=== PATIENT | female | born 1970 | race Caucasian/White ===

== ENCOUNTER 2019-07-07 18:50 | Emergency (ER) | payer BC ==
[~2019-07-07] VITALS: Ht 172.7 cm; Wt 81.8 kg
[2019-07-07 18:50] VITALS: BP 133/82
--- NOTE | 2019-07-07 18:54 | PHYS DOC ---
General Adult EDM: Chief Complaint: FOOT INJURY PAIN HPI: HPI: ".. 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 And I was in the produce section.. And slipped on the floor and when I attempted to catch myself I twisted my left foot and I heard a pop... And it has been hurting ever since.. Patient is a 49 year old female who presents with above hx and complaints of left mid foot injury. Patient localizes pain midfoot dorsal. Pain is increased with weightbearing, dorsal flexion and plantar. Distal neurovascular is equal to right foot. No upper leg tenderness. Patient denies any history of osteopenia. Patient denies any history of immunosuppression. Has travel outside the [place] area. No specific ill contacts. Patient was wearing sandals at the time of injury. Patient denies any history of osteopenia. Review of Systems: Review of Systems: Constitutional: Denies fever or chills Eyes: Denies change in visual acuity HENT: Denies nasal congestion or sore throat Respiratory: Denies cough or shortness of breath Cardiovascular: Denies chest pain or edema GI: Denies abdominal pain, nausea, vomiting, bloody stools or diarrhea : Denies dysuria Musculoskeletal: Complains of left foot pain. Integument: Denies rash Neurologic: Denies headache, focal weakness or sensory changes Endocrine: Denies polyuria or polydipsia Lymphatic: Denies swollen glands Psychiatric: Denies depression or anxiety Heart Score: HEART Score for Chest Pain: HEART Score for Chest Pain Response (Comments) Value Age >45 - < 65 1 Total 1 Risk Factors: Risk Factors: DM, Current or recent (<one month) smoker, HTN, HLP, family history of CAD, obesity. Risk Scores: Score 0 - 3: 2.5% MACE over next 6 weeks - Discharge Home Score 4 - 6: 20.3% MACE over next 6 weeks - Admit for Clinical Observation Score 7 - 10: 72.7% MACE over next 6 weeks - Early Invasive Strategies Family History: Family History: Noncontributory Current Medications: Current Meds: See nursing for home meds Allergies: Allergies: Allergic to honeybee venom Physical Exam: PE: Constitutional: Well developed, well nourished, moderate acute distress, non- toxic appearance. [] HENT: Normocephalic, atraumatic, bilateral external ears normal, oropharynx moist, no oral exudates, nose normal. [] Eyes: PERRLA, EOMI, conjunctiva normal, no discharge. [] Neck: Normal range of motion, no tenderness, supple, no stridor. [] Cardiovascular:Heart rate regular rhythm, no murmur [] Lungs & Thorax: Bilateral breath sounds clear to auscultation [] Abdomen: Bowel sounds normal, soft, no tenderness, no masses, no pulsatile masses. [] Skin: Warm, dry, no erythema, no rash. [] Back: No tenderness, no CVA tenderness. [] Extremities: No tenderness, no cyanosis, no clubbing, ROM intact, no edema. [] Except findings in left foot as per HPI. Neurologic: Alert and oriented X 3, normal motor function, normal sensory function, no focal deficits noted. [] Psychologic: Affect anxious, judgement normal, mood normal. [] EKG: EKG: [] Radiology/Procedures: Radiology/Procedures: [][place] [address] IMAGING REPORT Signed PATIENT: HENRRY WEISS EACCOUNT: [id number] : 1970 LOCATION: ER AGE: 49 SEX: F EXAM STATUS: REG ER ORD. PHYSICIAN: FRANKLIN VIZCARRA MD REASON: Left foot injury, pain PROCEDURE: FOOT LEFT 3V FOOT LEFT 3V 07/07/2019 7:08 PM INDICATION: Left foot injury COMPARISON: None available. TECHNIQUE: 3 views of the left foot are provided. FINDINGS/ IMPRESSION: There is no acute fracture or dislocation. Joint spaces are maintained. Bone mineralization is within normal limits. Regional soft tissues are within normal limits. There is no soft tissue gas or osseous erosion. No radiopaque foreign body. Electronically signed by: Margot Kirby MD (07/07/2019 7:40 PM) [facility] DICTATED AND SIGNED BY: MARGOT KIRBY MD DATE: 07/07/191939 CC: FRANKLIN VIZCARRA MD; PCP,NO ~ Course & Med Decision Making: Course & Med Decision Making Pertinent Labs and Imaging studies reviewed. (See chart for details) Ice, elevation, Herbert wrap, and take Tylenol ibuprofen as needed for pain. Follow-up primary care. Return if any concerns. Use a stiff shoe. Re-x-ray in 2 weeks if no improvement. Distal neurovascular intact after application of Herbert wrap. Impression- 1. Midfoot sprain left foot [] Katlyn Disclaimer: Katlyn Disclaimer: This electronic medical record was generated, in whole or in part, using a voice recognition dictation system. Departure Departure: Disposition: HOME/RESIDENCE PRIOR TO ADM Condition: STABLE Referrals: PCP,NO (PCP) Scripts Hydrocodone/Ibuprofen (HYDROCODONE-IBUPROFEN 7.5-200 ) 1 Each Tablet 1 TAB PO PRN Q6HRS PRN for PAIN, #30 TAB 0 Refills Prov: FRANKLIN VIZCARRA MD 07/07/19 Katlyn Disclaimer This chart was dictated in whole or in part using Voice Recognition software in a busy, high-work load, and often noisy Emergency Department environment. It may contain unintended and wholly unrecognized errors or omissions. FRANKLIN VIZCARRA MD July 07, 2019 18:54
--- NOTE | 2019-07-07 19:43 | RAD ---
FOOT LEFT 3V 07/07/2019 7:08 PM INDICATION: Left foot injury COMPARISON: None available. TECHNIQUE: 3 views of the left foot are provided. FINDINGS/ IMPRESSION: There is no acute fracture or dislocation. Joint spaces are maintained. Bone mineralization is within normal limits. Regional soft tissues are within normal limits. There is no soft tissue gas or osseous erosion. No radiopaque foreign body. Electronically signed by: Ashlyn Kirby MD (07/07/2019 7:40 PM) NINA
[2019-07-07] MEDS ORDERED: HYDR-1179 PO (20:06)
== END 2019-07-07 20:15 | disposition home or self-care (01) ==
LOC: ER 18:50
DX: S93.602A Unspecified sprain of left foot, initial encounter (principal); Z91.030 Bee allergy status; X50.9XXA Other and unspecified overexertion or strenuous movements or postures, initial encounter; Y93.89 Activity, other specified; Y92.512 Supermarket, store or market as the place of occurrence of the external cause; Y99.8 Other external cause status
CPT/HCPCS: 73630; 99283

== ENCOUNTER 2019-09-22 05:39 | Emergency (ER) | payer BC ==
[~2019-09-22] VITALS: Ht 172.7 cm; Wt 83.0 kg
[~2019-09-22 05:39] MED LIST: HYDR-1179 PO
[2019-09-22] MEDS: IPRATRPIUM/ALBUTEROL 0.5/2.5MG 3 ML NEBU. NEB ONE ×3 (05:55→09:58)
--- NOTE | 2019-09-22 06:18 | PHYS DOC ---
Past History Past Medical History: Asthma, COPD Past Surgical History: , Hysterectomy, Tonsillectomy, Other Additional Past Surgical Histo: cochlear device Alcohol Use: None General Adult EDM: Chief Complaint: ASTHMA HPI: HPI: 49-year-old female past medical history significant for asthma, presents the ED with complaints of sinus pressure, postnasal drip, productive nocturnal cough (yellow/brown nasal discharge) for the past 6 days, no relief with neb treatment block captain. Associated myalgias and fatigue. Diagnosed with asthma/copd (unsure which- has never smoked) 2 years ago in [place] and was intubated at that time. Last asthma flare was over 6 months ago. Feels like she cannot take a deep breath. 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 PSH-hysterectomy. No h/o DVT/PE, recent trauma/surgery/hospitalizations, prolonged travel, not taking any estrogen products. ROS: Denies associated fever, chills, chest pain pressure heaviness rib pain, hemoptysis, unilateral leg swelling, nausea, vomiting, diarrhea, abdominal pain, back pain, dysuria, hematuria, sore throat, rash, earache, headache, or diaphoresis. Heart Score: HEART Score for Chest Pain: HEART Score for Chest Pain Response (Comments) Value History Slighlty/Non-Suspicious 0 ECG Normal 0 Age >45 - < 65 1 Risk Factors No Risk Factors 0 Troponin < Normal Limit 0 Total 1 Risk Factors: Risk Factors: DM, Current or recent (<one month) smoker, HTN, HLP, family history of CAD, obesity. Risk Scores: Score 0 - 3: 2.5% MACE over next 6 weeks - Discharge Home Score 4 - 6: 20.3% MACE over next 6 weeks - Admit for Clinical Observation Score 7 - 10: 72.7% MACE over next 6 weeks - Early Invasive Strategies PT WITH NO CHEST PAIN Current Medications: Current Meds: Current Medications Medications (Trade) Dose Ordered Sig/Jamaal Start Time Stop Time Status Last Admin Dose Admin Albuterol/ Ipratropium (Duoneb) 3 ml 1X ONCE 09/22/19 06:30 09/22/19 06:31 09/22/19 05:55 3 ML Allergies: Allergies: Allergies Coded Allergies Type Severity Reaction Last Updated Verified bee venom protein (honey bee) Allergy Unknown 07/07/19 Yes Physical Exam: PE: Constitutional: Well developed, well nourished, no acute distress, non-toxic appearance. [] HENT: Normocephalic, atraumatic, bilateral external ears normal, oropharynx moist, no oral exudates/erythema, nose normal. [] Eyes: EOMI, conjunctiva normal, no discharge. [] Neck: Normal range of motion, no tenderness, supple, no stridor. [] Cardiovascular:Heart rate regular rhythm-tachycardic, no murmur [] Lungs & Thorax: Bilateral breath sounds, expiratory wheezing, speaking in full sentences, no respiratory distress Abdomen: Bowel sounds normal, soft, no tenderness, no masses, no pulsatile masses. [] Skin: Warm, dry, no erythema, no rash. [] Back: No tenderness, no CVA tenderness. [] Extremities: No tenderness, no cyanosis, no clubbing, ROM intact, no edema. [] Neurologic: Alert and oriented X 3, normal motor function, normal sensory function, no focal deficits noted. [] Psychologic: Affect normal, judgement normal, mood normal. [] Current Patient Data: Vital Signs: Vital Signs Date Time Temp Pulse Resp B/P (MAP) Pulse Ox O2 Delivery O2 Flow Rate FiO2 09/22/19 05:57 95 Room Air 09/22/19 05:39 98.2 110 20 141/94 (110) EKG: EKG: Sinus tachycardia at 101 bpm, no axis deviation, QTC 460, T wave inversion lead III, no ST elevations or ST depressions Radiology/Procedures: Radiology/Procedures: IMAGING REPORT Signed PATIENT: HENRRY WEISS EACCOUNT: [id number] : 1970 LOCATION: ER AGE: 49 SEX: F EXAM STATUS: REG ER ORD. PHYSICIAN: ANDRES HOBBS DO REASON: soa PROCEDURE: CHEST AP ONLY AP chest x-ray HISTORY: Shortness of breath. FINDINGS: Heart size normal. Mediastinal silhouette is normal. No pneumothorax. No pleural effusions. Indistinct somewhat linear density at the right lateral midlung. Left lung clear. Bones unremarkable. IMPRESSION: Nonspecific 2 cm linear indistinct density of the right lateral midlung could represent atelectasis, early pneumonia, or scarring. Follow-up x-rays after treatment is advised to document that this resolves. Electronically signed by: Sandra Javed MD (09/22/2019 6:29 AM) [facility] DICTATED AND SIGNED BY: SANDRA JVAED MD DATE: 09/22/19628 CC: PCP,NO; ANDRES HOBBS DO ~ IMAGING REPORT Signed PATIENT: HENRRY WEISS EACCOUNT: [id number] : 1970 LOCATION: ER AGE: 49 SEX: F EXAM STATUS: REG ER ORD. PHYSICIAN: ANDRES HOBBS DO REASON: soa, elevated d-dimer PROCEDURE: CT ANGIOGRAPHY CHEST Study: CT CHEST WITH CONTRAST - PULMONARY ANGIOGRAM History: Shortness of air. Elevated d-dimer. Pulmonary embolism. Comparison: No prior CT. Technique: Helical CT of the chest performed after the administration of 100 cc Omnipaque 350 intravenous contrast and timed for angiographic evaluation of the pulmonary arteries per PE protocol. Coronal and sagittal 3D MIP reformations were obtained. One or more of the following individualized dose reduction techniques were utilized for this examination: 1. Automated exposure control 2. Adjustment of the mA and/or kV according to patient size 3. Use of iterative reconstruction technique. Findings: Pulmonary Arteries: No main, lobar or segmental pulmonary embolism. Normal main pulmonary artery caliber. Heart/Systemic Vasculature: Nonaneurysmal aorta. The visualized great vessels are patent. No CT findings of right heart strain. Mediastinum: Subcarinal lymph node on image 69 series 5 measures approximately 1.5 cm short axis. A few borderline enlarged hilar lymph nodes bilaterally. Small hiatal hernia and mild circumferential wall thickening of the distal esophagus, image 120 series 5. Lungs: Scattered mild bronchial wall thickening as well as intermittent opacification of small airways to both lungs. Small pleural-based nodular focus at the lateral right upper lung, image 43 series 5, measuring approximately 3.5 mm. A few additional tiny nodular foci abutting the pleura measuring 3 mm or less. No suspicious pulmonary nodule based on size. 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 Neck/Axilla/Body Wall: Right thyroid lobe nodule, image 14 series 5, measuring approximately 1.3 cm. This does not warrant dedicated follow-up based on nodule size and patient age. No axillary adenopathy. Upper Abdomen: Faintly nodular configuration of the adrenal glands but without a discrete mass. Bones: No acute or aggressive osseous process. Miscellaneous: None. IMPRESSION: 1. No main, lobar or segmental pulmonary embolism. 2. Scattered mild bronchial wall thickening and intermittent opacification of small airways to both lungs. Bronchitis is a consideration. No findings of an organizing pneumonia. 3. 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 This is favored more likely developmental than related to remote trauma. 4. A few mildly prominent mediastinal and hilar lymph nodes are most likely reactive given patient age and findings suggestive of bronchitis. No dedicated follow-up is needed unless otherwise clinically indicated. 5. Small hiatal hernia and mild wall thickening of the distal esophagus. Recommend correlation for a history of GERD. Electronically signed by: KIERSTEN STONE MD (09/22/2019 8:37 AM) [id number] DICTATED AND SIGNED BY: KIERSTEN STONE MD DATE: 09/22/19 0837 CC: PCP,NO; ANDRES HOBBS DO ~ Course & Med Decision Making: Course & Med Decision Making Pertinent Labs and Imaging studies reviewed. (See chart for details) Concern for asthma/copd exacerbation in the setting of uri-sinusitis vs bronchitis x6 days. D-dimer elevated (ordered due to cxr findings concerning for yarbrough hump). No lobar consolidation, pna, or pe. Covid test pending. Pt reports "I just feel like crap, this is how I felt before I had pneumonia." Pt reassured CT imaging does not show pna. Pt requests to be discharged home. Speaking in full sentences, not toxic appearing, no increased wob. Breathing txs and steroids started in ed. Will dc home w/strict return precautions for respiratory distress, chest pain or dehydration. Will describe steroids, and albuterol, Flovent, Mucinex and antibiotics. Encouraged urgent outpatient follow-up with PMD (moved here 1 yr ago-has not established pmd, referrals given) and pulmonology. Life-threatening processes were considered but are low suspicion at this time, given history and physical exam. All patient's questions were answered and pt was stable at time of discharge. I spoken with the patient and her caregivers. I explained the patient's condition, diagnoses and treatment plan based on the information available to me at this time. I have answered the patient and her caregiver's questions and addressed any concerns. The patient and her caregivers have a good understanding of patient's diagnosis, condition and treatment plan as can be expected at this point. Vital signs have been stable. Patient's condition is stable and appropriate for discharge from the emergency department. Patient will pursue further outpatient evaluation with primary care physician or other designated or consulting physician as outlined in the discharge instructions. The patient and/or caregivers are agreeable to this plan of care and follow-up instructions have been explained in detail. The patient and/or caregivers have received these instructions in written form and have expressed an understanding of the discharge instructions. The patient and/or caregivers are aware that any significant change of condition or worsening of symptoms should prompt immediate return to this or the closest emergency department or call to 911. [employer] Disclaimer: [email or web address] Disclaimer: This electronic medical record was generated, in whole or in part, using a voice recognition dictation system. Departure Departure: Impression: Primary Impression: Asthma exacerbation Additional Impressions: Bronchitis URI (upper respiratory infection) Sinusitis Disposition: HOME/RESIDENCE PRIOR TO ADM Condition: STABLE Referrals: PCP,MISAEL (PCP) BUZZ PEREIRA MD Patient Instructions: Asthma, Adult, Sinusitis Additional Instructions: Geno Ramos MD*-family medicine [address] [place] [id number] Sandra Lagunas MD*-family medicine [address] [place] [id number] Scripts Guaifenesin/Dextromethorphan (MUCINEX DM ER 600-30 MG TABLET) 1 Each Tab.er.12h 1 TAB PO PRN BID PRN for cough and congestion for 14 Days, #28 TAB 0 Refills Prov: ANDRES HOBBS DO 09/22/19 Doxycycline Monohydrate (MONODOX) 100 Mg Capsule 1 CAP PO BID for uri for 10 Days, #20 CAP 0 Refills Prov: ANDRES HOBBS DO 09/22/19 Fluticasone Propionate (FLOVENT 44MCG HFA) 10.6 Gm Aer.w.adap 2 PUFF IH BID for asthma for 30 Days, #10.6 GM 0 Refills Prov: ANDRES HOBBS DO 09/22/19 Albuterol Sulfate (VENTOLIN HFA INHALER) 18 Gm Hfa.aer.ad 1 PUFF IH PRN Q4HRS PRN for FOR ASTHMA for 30 Days, #1 INHALER 0 Refills Prov: ANDRES HOBBS DO 09/22/19 Prednisone (PREDNISONE) 50 Mg Tablet 40 MG PO DAILY for asthma for 4 Days, #4 TAB Prov: ANDRES HOBBS DO 09/22/19 Justification of Admission: Justification of Admission: Justification of Admission Dx: N/A ANDRES HOBBS DO Sep 22, 2019 06:18
--- NOTE | 2019-09-22 06:32 | RAD ---
AP chest x-ray HISTORY: Shortness of breath. FINDINGS: Heart size normal. Mediastinal silhouette is normal. No pneumothorax. No pleural effusions. Indistinct somewhat linear density at the right lateral midlung. Left lung clear. Bones unremarkable. IMPRESSION: Nonspecific 2 cm linear indistinct density of the right lateral midlung could represent atelectasis, early pneumonia, or scarring. Follow-up x-rays after treatment is advised to document that this resolves. Electronically signed by: Fly Javed MD (09/22/2019 6:29 AM) [facility]
--- NOTE | 2019-09-22 06:53 | EKG ---
[address] [address] Test Date: 2019-09-22 Test Time: 06:44:53 Pat Name: HENRRY WEISS Department: Room: Gender: F Systems [employer] Analyst: : 1970 Requested By: ANDRES HOBBS Order Number: [id number] Reading MD: Measurements Intervals [place] Rate: 101 P: 2 DC: 146 QRS: 53 QRSD: 98 T: 17 QT: 354 QTc: 460 Interpretive Statements SINUS TACHYCARDIA OTHERWISE NORMAL ECG RI6.02 No previous ECG available for comparison
[2019-09-22 07:13] LABS: BASO # 0.1 x10^3/uL (0.0-0.2); BASO % 2 % (0-3); EOS # 1.6 x10^3/uL (0.0-0.7); EOS % 16 % (0-3); HEMATOCRIT 44.4 % (36.0-47.0); HEMOGLOBIN 14.6 g/dL (12.0-15.5); LYMPH # 2.3 x10^3/uL (1.0-4.8); LYMPH % 23 % (24-48); MEAN CORPUSCULAR HEMOGLOBIN 29 pg (25-35); MEAN CORPUSCULAR HGB CONC 33 g/dL (31-37); MEAN CORPUSCULAR VOLUME 89 fL (79-100); MONO # 0.6 x10^3/uL (0.0-1.1); MONO % 6 % (0-9); NEUT # 5.3 x10^3uL (1.8-7.7); NEUT % 53 % (31-73); PLATELET COUNT 262 x10^3/uL (140-400); RED CELL DISTRIBUTION WIDTH 13.2 % (11.5-14.5); WHITE BLOOD COUNT 9.9 x10^3/uL (4.0-11.0)
[2019-09-22 07:25] LABS: GFR 59.4; POTASSIUM 3.7 mmol/L (3.5-5.1)
[2019-09-22 07:30] LABS: ALBUMIN 3.7 g/dL (3.4-5.0); ALBUMIN/GLOBULIN RATIO 1.1 (1.0-1.7); TOTAL BILIRUBIN 0.4 mg/dL (0.2-1.0); TOTAL PROTEIN 7.1 g/dL (6.4-8.2)
[2019-09-22 07:34] VITALS: BP 149/91
[2019-09-22] MEDS: IOHEXOL 350 MG/ML 100 ML VIAL. IV ONE (07:58)
--- NOTE | 2019-09-22 08:40 | RAD ---
Study: CT CHEST WITH CONTRAST - PULMONARY ANGIOGRAM History: Shortness of air. Elevated d-dimer. Pulmonary embolism. Comparison: No prior CT. Technique: Helical CT of the chest performed after the administration of 100 cc Omnipaque 350 intravenous contrast and timed for angiographic evaluation of the pulmonary arteries per PE protocol. Coronal and sagittal 3D MIP reformations were obtained. One or more of the following individualized dose reduction techniques were utilized for this examination: 1. Automated exposure control 2. Adjustment of the mA and/or kV according to patient size 3. Use of iterative reconstruction technique. Findings: Pulmonary Arteries: No main, lobar or segmental pulmonary embolism. Normal main pulmonary artery caliber. Heart/Systemic Vasculature: Nonaneurysmal aorta. The visualized great vessels are patent. No CT findings of right heart strain. Mediastinum: Subcarinal lymph node on image 69 series 5 measures approximately 1.5 cm short axis. A few borderline enlarged hilar lymph nodes bilaterally. Small hiatal hernia and mild circumferential wall thickening of the distal esophagus, image 120 series 5. Lungs: Scattered mild bronchial wall thickening as well as intermittent opacification of small airways to both lungs. Small pleural-based nodular focus at the lateral right upper lung, image 43 series 5, measuring approximately 3.5 mm. A few additional tiny nodular foci abutting the pleura measuring 3 mm or less. No suspicious pulmonary nodule based on size. 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 Neck/Axilla/Body Wall: Right thyroid lobe nodule, image 14 series 5, measuring approximately 1.3 cm. This does not warrant dedicated follow-up based on nodule size and patient age. No axillary adenopathy. Upper Abdomen: Faintly nodular configuration of the adrenal glands but without a discrete mass. Bones: No acute or aggressive osseous process. Miscellaneous: None. IMPRESSION: 1. No main, lobar or segmental pulmonary embolism. 2. Scattered mild bronchial wall thickening and intermittent opacification of small airways to both lungs. Bronchitis is a consideration. No findings of an organizing pneumonia. 3. 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 This is favored more likely developmental than related to remote trauma. 4. A few mildly prominent mediastinal and hilar lymph nodes are most likely reactive given patient age and findings suggestive of bronchitis. No dedicated follow-up is needed unless otherwise clinically indicated. 5. Small hiatal hernia and mild wall thickening of the distal esophagus. Recommend correlation for a history of GERD. Electronically signed by: KIERSTEN STONE MD (09/22/2019 8:37 AM) [id number]
[2019-09-22] MEDS ORDERED: KETOROLAC 30 MG/ML VIAL. ONE (09:53)
[2019-09-22] MEDS ORDERED: GUAI-108 PO (09:56)
[2019-09-22] MEDS ORDERED: PRED50TA PO (09:56)
[2019-09-22] MEDS ORDERED: ALBU2.5V8 IH (09:56)
[2019-09-22] MEDS ORDERED: FLUT10.6 IH (09:56)
[2019-09-22] MEDS ORDERED: DOXY100C25 PO (09:56)
[2019-09-22] MEDS: KETOROLAC 30 MG/ML VIAL. IVP ONE (09:58)
[2019-09-22] MEDS: predniSONE 20 MG TABLET PO ONE (09:59)
== END 2019-09-22 10:17 | disposition home or self-care (01) ==
LOC: ER 05:39
DX: J45.909 Unspecified asthma, uncomplicated (principal); J32.9 Chronic sinusitis, unspecified; J06.9 Acute upper respiratory infection, unspecified; J44.9 Chronic obstructive pulmonary disease, unspecified; Z91.030 Bee allergy status; Z20.828 Contact with and (suspected) exposure to other viral communicable diseases
CPT/HCPCS: 36415; 71045; 71275; 80053; 84484; 85025; 85379; 93005; 94640; 96374; 99285; J1885; J7512; Q9967; U0003

== ENCOUNTER 2019-10-31 02:51 | Inpatient (IN) | payer BC ==
[~2019-10-31] VITALS: Ht 172.7 cm; Wt 94.2 kg
[~2019-10-31 02:51] MED LIST changes: +ALBU2.5V8 IH; +DOXY100C25 PO; +FLUT10.6 IH; +GUAI-108 PO; +PRED50TA PO
--- NOTE | 2019-10-31 02:58 | PHYS DOC ---
Past History Past Medical History: Asthma, Bronchitis, COPD, Hypertension Past Surgical History: Cholecystectomy, , Hysterectomy, Tonsillectomy, Other Additional Past Surgical Histo: cochlear device Alcohol Use: None General Adult HPI: HPI: ".. This started.... yesteraday. ...... about 5 ( 1700)......I got ....bad ....... asthma...... but ...this time...... its...... bad...... almost ... as bad ...... as..... when ... I .... got ...intubated...." Patient is a 49 year old female who presents with above hx and complaints of dyspnea, coughing, wheezing, hypoxia. Patient presents in extreme respiratory distress, hypoxic on room air, sitting in tripod positioning. Pt. only able to speak in 2-3 word at time because of dyspnea. Occasional coughing spasm resulting in marked desaturation. Respiratory rates in the 40s. The patient has done multiple breathing treatments at home with no improvement. Patient has previous intubation for an asthma exacerbation approximately 2 years ago in [place]. Patient did have an asthma flare approximately once a month ago which resolved with meds. Patient denies any specific ill contacts but is exposed to her children 12 and 14 but they are healthy. Patient does have some exposure to patients where she works at the [employer]. 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 There have been other employees there that had tested positive for COVID. Patient has past medical history of hysterectomy, tonsillectomy, , cholecystectomy and cochlear implant device. No history of coagulopathy, DVTs, PEs of her or family members. No recent travel outside [facility]. Not recently been on steroids. Pt. does not smoke. Does have asthma triggers of viral illness, seasonal. Review of Systems: Review of Systems: Constitutional: Hx of fever or chills Eyes: Denies change in visual acuity HENT: History of nasal congestion and sore throat Respiratory: History of cough, shortness of breath, wheezing Cardiovascular: Denies chest pain or edema GI: Denies abdominal pain, nausea, vomiting, bloody stools or diarrhea : Denies dysuria Musculoskeletal: Denies back pain or joint pain Integument: Denies rash Neurologic: Denies headache, focal weakness or sensory changes Endocrine: Denies polyuria or polydipsia Lymphatic: Denies swollen glands Psychiatric: Denies depression or anxiety Heart Score: HEART Score for Chest Pain: HEART Score for Chest Pain Response (Comments) Value History Slighlty/Non-Suspicious 0 ECG Normal 0 Age >45 - < 65 1 Risk Factors 1 or 2 Risk Factors 1 Troponin < Normal Limit 0 Total 2 Risk Factors: Risk Factors: DM, Current or recent (<one month) smoker, HTN, HLP, family history of CAD, obesity. Risk Scores: Score 0 - 3: 2.5% MACE over next 6 weeks - Discharge Home Score 4 - 6: 20.3% MACE over next 6 weeks - Admit for Clinical Observation Score 7 - 10: 72.7% MACE over next 6 weeks - Early Invasive Strategies Family History: Family History: Noncontributory to presentation. Current Medications: Current Meds: See nursing for home medications Allergies: Allergies: Allergies Coded Allergies Type Severity Reaction Last Updated Verified bee venom protein (honey bee) Allergy Unknown 07/07/19 Yes Physical Exam: PE: Constitutional: In severe acute respiratory distress, ill in appearance. [] HENT: Normocephalic, atraumatic, bilateral external ears normal, oropharynx moist, mild injection of pharynx, postnasal drainage, no oral exudates, nose swollen turbinates and clear rhinorrhea Eyes: PERRLA, EOMI, conjunctiva some petechia,, no discharge. [] Neck: Normal range of motion, no tenderness, supple, no stridor. [] Cardiovascular: Tachycardia heart rate regular rhythm, no murmur [] Lungs & Thorax: Bilateral breath sounds equal at apex, with pronounced wheezing throughout on auscultation []. Intercostal retraction. Abdomen: Bowel sounds normal, soft, no tenderness, no masses, no pulsatile masses. [Obese. Old surgery scars. Skin: Warm, diaphoretic, no erythema, no rash. [] Back: No tenderness, no CVA tenderness. [] Extremities: No tenderness, no cyanosis, no clubbing, ROM intact, no edema. No cording appreciated Neurologic: Alert and oriented X 3, moves all extremities on request, does have distal sensory,, no focal deficits noted. [] Psychologic: Affect anxious , judgement normal, mood normal. [] EKG: EKG: My interpretation EKG shows a sinus tachycardia 102 bpm. No findings of acute STEMI or contralateral changes. [] Radiology/Procedures: Radiology/Procedures: My interpretation of CXR - Hyperexpanded. Does have some micro calcifications. Bifid Rt. 5th Rib. Few areas of segmental atelectasis. Course & Med Decision Making: Course & Med Decision Making Pertinent Labs and Imaging studies reviewed. (See chart for details) Continuous breathing treatment, magnesium, Zithromax, Rocephin, Solu-Medrol 25 mg IV and fluid bolus. Patient able to speak in full sentences. Maintain sats in the range of 88 to 90% on room air. Discussed presentation, testing and tx. plan with Dr. De La O Impression: 1. Asthma Exacerbation 2. Respiratory Failure Hypoxia 3. Accelerated hypertension 4. Leukocytosis 12.4 with elevated Esino 14 5. Viral syndrome [] Dragon Disclaimer: Dragon Disclaimer: This electronic medical record was generated, in whole or in part, using a voice recognition dictation system. Departure Departure: Disposition: 01 HOME/RESIDENCE PRIOR TO ADM Condition: STABLE Referrals: PCP,NO (PCP) Justification of Admission: Justification of Admission: Justification of Admission Dx: Yes Comments: Respiratory Failure, Hypoxia, Asthma Exacerbation Dragon Disclaimer This chart was dictated in whole or in part using Voice Recognition software in a busy, high-work load, and often noisy Emergency Department environment. It may contain unintended and wholly unrecognized errors or omissions. Dragon Disclaimer This chart was dictated in whole or in part using Voice Recognition software in a busy, high-work load, and often noisy Emergency Department environment. It may contain unintended and wholly unrecognized errors or omissions. FRANKLIN VIZCARRA MD Oct 31, 2019 02:58
[2019-10-31] MEDS ORDERED: IV RINGERS SOLUTION,LACTATED 1,000 ML IV SCH (03:15)
[2019-10-31] MEDS ORDERED: AZITHROMYCIN 250 MG TABLET. PO ONE (03:15)
[2019-10-31] MEDS ORDERED: methylPREDNISolone SOD SUCC PF 125 MG/2 ML VIAL. IV ONE (03:15)
[2019-10-31] MEDS ORDERED: IPRATRPIUM/ALBUTEROL 0.5/2.5MG 3 ML NEBU. NEB ONE (03:15)
[2019-10-31] MEDS ORDERED: IV NORMAL SALINE 50ML 50 ML ONE (03:20)
[2019-10-31] MEDS ORDERED: cefTRIAXone SODIUM 1 GM VIAL ONE (03:20)
[2019-10-31] MEDS ORDERED: ALBUTEROL SULFATE 2.5 MG/3 ML NEBU. ONE (03:33)
[2019-10-31] MEDS ORDERED: MAGNESIUM SULFATE 2GM 50 ML IV ONE (03:45)
[2019-10-31 03:48] LABS: BGAS PH 7.44 (7.35-7.45)
[2019-10-31 03:57] LABS: BASO # 0.2 x10^3/uL (0.0-0.2); BASO % 1 % (0-3); EOS # 1.7 x10^3/uL (0.0-0.7); EOS % 14 % (0-3); HEMATOCRIT 47.1 % (36.0-47.0); HEMOGLOBIN 15.4 g/dL (12.0-15.5); LYMPH # 3.4 x10^3/uL (1.0-4.8); LYMPH % 27 % (24-48); MEAN CORPUSCULAR HEMOGLOBIN 29 pg (25-35); MEAN CORPUSCULAR HGB CONC 33 g/dL (31-37); MEAN CORPUSCULAR VOLUME 89 fL (79-100); MONO # 0.8 x10^3/uL (0.0-1.1); MONO % 7 % (0-9); NEUT # 6.3 x10^3uL (1.8-7.7); NEUT % 51 % (31-73); PLATELET COUNT 309 x10^3/uL (140-400); RED BLOOD COUNT 5.28 x10^6/uL (3.50-5.40); RED CELL DISTRIBUTION WIDTH 13.8 % (11.5-14.5); WHITE BLOOD COUNT 12.4 x10^3/uL (4.0-11.0)
[2019-10-31 04:25] LABS: % BASOS 1 % (0-3); % EOS 12 % (0-5); % LYMPHS 31 % (24-48); % MONOS 8 % (0-10); % SEGS 48 % (35-66)
[2019-10-31 04:26] LABS: PLT ESTIMATE ADEQUATE (ADEQUATE); TOXIC GRANULATION SLIGHT
[2019-10-31 04:41] LABS: CALCIUM 9.4 mg/dL (8.5-10.1); GFR 59.4
[2019-10-31 04:54] LABS: DIRECT BILIRUBIN 0.2 mg/dL (0.0-0.2); MAGNESIUM 2.1 mg/dL (1.8-2.4); TOTAL BILIRUBIN 0.6 mg/dL (0.2-1.0)
[2019-10-31 05:02] LABS: INFLUENZA A PATIENT NEGATIVE (NEGATIVE); INFLUENZA B PATIENT NEGATIVE (NEGATIVE)
[2019-10-31 05:07] LABS: U PREG PATIENT NEGATIVE (NEG)
[2019-10-31 05:08] LABS: AMPHETAMINE/METHAMPHETAMINE NEG (NEG); BARBITURATES NEG (NEG); BENZODIAZEPINES NEG (NEG); CANNABINOIDS NEG (NEG); COCAINE NEG (NEG); METHADONE NEG (NEG); OPIATES NEG (NEG); PHENCYCLIDINE NEG (NEG)
[2019-10-31 05:14] LABS: BILIRUBIN,URINE NEG (NEG); CLARITY,URINE CLEAR; COLOR,URINE YELLOW; GLUCOSE,URINE NEG (NEG); NITRITE,URINE NEG (NEG); UROBILINOGEN,URINE 0.2 mg/dL (0.2 mg/dL)
[2019-10-31 05:15] LABS: AMORPHOUS SEDIMENT,UR PRESENT /HPF; BACTERIA,URINE 0 /HPF (0-FEW); SQUAMOUS EPITHELIAL CELL,UR MOD /LPF; WBC,URINE 0 /HPF (0-4)
[2019-10-31] MEDS ORDERED: ACETAMINOPHEN 325 MG TABLET PO PRN (05:15)
[2019-10-31] MEDS ORDERED: ONDANSETRON PF 4 MG/2 ML VIAL. IVP PRN (05:15)
[2019-10-31 06:10] VITALS: BP 151/85
[2019-10-31] MEDS: IV RINGERS SOLUTION,LACTATED 1,000 ML IV SCH ×2 (06:31→10:15)
[2019-10-31] MEDS ORDERED: ALBU2.5V14 NEB (06:44)
[2019-10-31] MEDS ORDERED: ALBU2.5V8 IH (06:44)
[2019-10-31] MEDS ORDERED: MONT10TA80 PO (06:44)
[2019-10-31] MEDS ORDERED: CETI10TA74 PO (06:44)
--- NOTE | 2019-10-31 06:52 | EKG ---
[address] [address] Test Date: 2019-10-31 Test Time: 03:24:40 Pat Name: HENRRY WEISS Department: Room: Gender: F Storage Worker: : 1970 Requested By: FRANKLIN VIZCARRA Order Number: [id number] Reading MD: Measurements Intervals [place] Rate: 102 P: 15 MT: 162 QRS: 71 QRSD: 86 T: 51 QT: 328 QTc: 432 Interpretive Statements SINUS TACHYCARDIA OTHERWISE NORMAL ECG RI6.02 No previous ECG available for comparison
--- NOTE | 2019-10-31 07:05 | NUR ---
PT admitted to ICU on observation status for SOB at rest and exertion with audible wheeze and increasing O2 needs. Reviewed with PT her PMH, PSH, SH, FH and medications.
--- NOTE | 2019-10-31 07:30 | RAD ---
INDICATION: Reason: dyspnea, cough / Spl. Instructions: / History: COMPARISON: September 22, 2019 FINDINGS: Single view of chest obtained. Repeat demonstration of focal opacity in the right chest without change from prior. This is better characterized on the recent CT. No definite new region of consolidation with some mild interstitial prominence again seen left greater than right. Cardiac silhouette is similar to prior. IMPRESSION: * Similar examination compared to prior with some mild interstitial prominence without a new region of focal airspace consolidation. Electronically signed by: Zhao Hare MD (10/31/2019 7:27 AM) [id number]
[2019-10-31] MEDS ORDERED: IPRATRPIUM/ALBUTEROL 0.5/2.5MG 3 ML NEBU. NEB SCH (08:00)
[2019-10-31 08:30] VITALS: BP 138/78
[2019-10-31] MEDS ORDERED: LACTOBACILLUS RHAMNOSUS GG 1 CAPSULE. PO SCH (09:00)
[2019-10-31] MEDS ORDERED: methylPREDNISolone SOD SUCC PF 125 MG/2 ML VIAL. IV SCH (09:00)
--- NOTE | 2019-10-31 09:37 | HP ---
ADMIT DATE: 10/31/2019 ATTENDING PHYSICIAN: Dr. Murphy. CHIEF COMPLAINT: Wheezing and shortness of breath. HISTORY OF PRESENT ILLNESS: The patient is a very pleasant 49-year-old female who is employed at the [employer] across the street. She recently moved here from [place] 1 year ago. She has had a 2-day history of wheezing, dyspnea, very tight. She is hypoxic. She was only able to speak a few words at a time. She was given several breathing treatments. She denied any recent COVID exposure. No fevers, chills. Cough is fairly nonproductive. She had status asthmaticus. Her chest x-ray was actually clear. She was admitted for further treatment and evaluation. PAST MEDICAL HISTORY: Significant for seasonal allergies. Resolving asthma. She has had severe episodes in the past. She has had a hysterectomy, tonsillectomy, , cholecystectomy and cochlear implant. There is no history, recent travel, DVTs, PEs, coagulopathy, heart disease. SOCIAL HISTORY: She is a nonsmoker, nondrinker. She is very active. She has been spending a lot of time outdoors. I believe most of her symptoms are due to the recent RAGWEED ALLERGEN triggers. CURRENT MEDICATIONS: Include albuterol inhaler, Singulair, and Zyrtec. ALLERGIES: SHE HAS ALLERGIES TO BEE VENOM. SOCIAL HISTORY: Nonsmoker, nondrinker. FAMILY HISTORY: Noncontributory. REVIEW OF SYSTEMS: Significant for no recent exposure. No COVID exposures. She works on a regular job at the [employer]. There is some black mold exposure to the old buildings that she worked at. All other systems reviewed and turned to be negative. PHYSICAL EXAMINATION: GENERAL: When I saw her, this is a pleasant young female. INITIAL VITAL SIGNS: Showed a blood pressure 138/78, pulse is 90 and regular, temperature 98.4 degrees Fahrenheit. She is afebrile. Oxygen saturation adequate at 93% on room air. HEENT: Head is without trauma. Pupils are reactive. Sclerae nonicteric. Oropharynx clear. NECK: Supple. No stridor. LUNGS: Minimal expiratory wheezes. There are no rhonchi or rales. CARDIOVASCULAR: Showed regular heart tones. No gallops. Peripheral pulses are palpable and full. ABDOMEN: Soft, nontender, no organomegaly. Normoactive bowel sounds. EXTREMITIES: Show no cyanosis or edema. NEUROLOGIC: Focally intact. Speech is fluent. SKIN: Warm and dry. PERTINENT LABORATORY AND X-RAY STUDIES: Chest x-ray in the ED early this morning was entirely clear. Cardiac silhouette is unremarkable. The hemoglobin is 15.4 g/dL, white count is slightly elevated at 12,400. Electrolytes, BUN and creatinine, lactic acid, cardiac enzymes all within normal range. ASSESSMENT: 1. A 49-year-old female with exacerbation of asthma. 2. Status asthmaticus. 3. Previous section and hysterectomy. PLAN: 1. Admission to the unit. 2. Steroid therapy. 3. Nebulizer therapy. 4. Supplemental oxygen to be weaned. 5. Diet as tolerated. ELLE MURPHY MD DR: ASHER/hiral JOB#: [id number] / [id number]
--- NOTE | 2019-10-31 10:08 | DS ---
DATE OF DISCHARGE: 10/31/2019 ATTENDING PHYSICIAN: Dr. Murphy. FINAL DISCHARGE DIAGNOSES: 1. Status asthmaticus. 2. Allergic rhinitis and asthma. HISTORY OF PRESENT ILLNESS: This pleasant 49-year-old female is employed at the [employer]. She recently moved here from [place] one year ago. She has a longstanding history of asthma as well as allergic rhinitis and associated allergy-related asthma. She started wheezing and having a cough. She was seen in the ED. She had a component of status asthmaticus. She was admitted for further treatment and evaluation. PHYSICAL EXAMINATION: Please see the dictated note. PERTINENT LABORATORY AND X-RAY STUDIES: On this admission, her chest x-ray was clear without any acute infiltrate. Hemoglobin maintained at 15.4 g/dL, white count 12,400. Slightly elevated due to margination of white cells from steroid therapy. Electrolytes, BUN and creatinine, cardiac enzymes, all within normal range. COURSE IN THE HOSPITAL: The patient was admitted overnight. She was started on nebulizer therapy, supplemental oxygen was weaned down. She did better. By the time I saw her the next morning, her lungs were clear. She had very minimal expiratory wheezes. She wanted to go home. I felt this is reasonable. At this time, I recommended 7 more days of prednisone 60 mg p.o. daily and stop. She does not need to be tapered for this short time. In addition, she has a Ventolin inhaler. I wrote for Combivent metered dose inhaler 2 puffs 4 times a day, a prescription for antihistamine in the form of loratadine/pseudoephedrine 10/240 one daily and finally work release for 10/30 and 10/31 with return to work on 11/01. She was discharged then from our hospital in stable condition with explicit instructions and followup care. I suggested that she go through her benefits package to find a primary care physician in town. ELLE MURPHY MD DR: ASHER/hiral JOB#: [id number] / [id number]
--- NOTE | 2019-10-31 10:17 | NUR ---
Pt being dc to home per Dr De La O. Without O2 pt is 91% on RA with inspiratory and exp wheezes. Pt is able to verbalize understanding of poc and discharge instructions. Pt given multiple Rx for discharge. Indy BANUELOS
[2019-11-01] MEDS ORDERED: AZITHROMYCIN 250 MG TABLET. PO SCH (09:00)
== END 2019-10-31 10:45 | disposition home or self-care (01) | DRG 202 ==
LOC: ER 02:51 → ICU 06:01 → OBSVTOIN 08:27
PROVIDERS: ADMIT Hospitalist; ATTEND Hospitalist
DX: J45.902 Unspecified asthma with status asthmaticus (principal); J96.91 Respiratory failure, unspecified with hypoxia; B34.9 Viral infection, unspecified; D72.829 Elevated white blood cell count, unspecified; I10 Essential (primary) hypertension; J44.9 Chronic obstructive pulmonary disease, unspecified; Z90.710 Acquired absence of both cervix and uterus; J30.2 Other seasonal allergic rhinitis; Z90.49 Acquired absence of other specified parts of digestive tract; Z91.030 Bee allergy status
CPT/HCPCS: 36415; 36600; 71045; 80048; 80076; 80307; 81001; 81025; 82550; 82803; 83605; 83690; 83735; 83880; 84443; 84484; 85007; 85025; 85379; 85610; 85730; 87040; 87070; 87804; 87880; 93005; 94640; 94644; 96365; 96367; 96375; G0378; G0379; J0456; J0696; J2930; J3475; J7120; 99285-25

== ENCOUNTER → 2020-01-20 | Outpatient (CLI) | payer BC ==
[~2020-01-20] MED LIST changes: +ALBU2.5V14 NEB; +CETI10TA74 PO; +MONT10TA80 PO
[2020-01-21 02:09] LABS: ALPHA 1 ANTITRYPSIN 117 mg/dL (101-187); IMMUNOGLOBULIN A 184 mg/dL (87-352); IMMUNOGLOBULIN G 778 mg/dL (586-1602); IMMUNOGLOBULIN M 228 mg/dL (26-217)
== END ==
LOC: LAB 13:00
PROVIDERS: ATTEND Internal Medicine Pulmonary Disease
DX: J47.1 Bronchiectasis with (acute) exacerbation (principal); J45.909 Unspecified asthma, uncomplicated
CPT/HCPCS: 36415; 82103; 82784; 82785

== ENCOUNTER 2020-07-07 17:03 | Emergency (ER) | payer BC ==
[~2020-07-07] VITALS: Ht 172.7 cm; Wt 92.8 kg
[2020-07-07 17:20] VITALS: BP 146/89
--- NOTE | 2020-07-07 17:53 | PHYS DOC ---
Past History Past Medical History: Asthma, Bronchitis, Cancer, COPD, Hypertension (ASHLI MARTE APRN) Past Surgical History: Cholecystectomy, , Hysterectomy, Tonsillectomy, Other Additional Past Surgical Histo: cochlear device (ASHLI MARTE APRN) Alcohol Use: Occasionally (ASHLI MARTE APRN) General Adult EDM: Chief Complaint: LACERATION/AVULSION HPI: HPI: Patient is a 50-year-old female presents with laceration to the right side of her head. Patient states that she hit her head on tile countertop. Patient denies loss of consciousness, denies being on blood thinners. Patient's rating pain a 2 out of 10. Patient denies needing anything for pain at this time. Litzy bryson's last tetanus was 3 years ago. (ASHLI MARTE APRN) Review of Systems: Review of Systems: Respiratory: Denies cough or shortness of breath Cardiovascular: Denies chest pain or edema Integument: Laceration to right side of forehead Neurologic: Reports some pain to her head, denies focal weakness or sensory changes (ASHLI MARTE APRN) Allergies: Allergies: Allergies Coded Allergies Type Severity Reaction Last Updated Verified bee venom protein (honey bee) Allergy Unknown 07/07/19 Yes (ASHLI MARTE APRN) Physical Exam: PE: Cardiovascular:Heart rate regular rhythm, no murmur [] Lungs & Thorax: Bilateral breath sounds clear to auscultation [] Skin: Warm, laceration to right side of head, bleeding controlled (ASHLI MARTE APRN) Current Patient Data: Vital Signs: Vital Signs Date Time Temp Pulse Resp B/P (MAP) Pulse Ox O2 Delivery O2 Flow Rate FiO2 07/07/20 17:20 97.9 72 20 146/89 (108) 97 Room Air (ASHLI MARTE APRN) EKG: EKG: [] (ASHLI MARTE APRN) Radiology/Procedures: Radiology/Procedures: [] (ASHLI MARTE APRN) Heart Score: C/O Chest Pain: No Risk Factors: Risk Factors: DM, Current or recent (<one month) smoker, HTN, HLP, family history of CAD, obesity. Risk Scores: Score 0 - 3: 2.5% MACE over next 6 weeks - Discharge Home Score 4 - 6: 20.3% MACE over next 6 weeks - Admit for Clinical Observation Score 7 - 10: 72.7% MACE over next 6 weeks - Early Invasive Strategies (ASHLI MARTE APRN) Course & Med Decision Making: Course & Med Decision Making Pertinent Labs and Imaging studies reviewed. (See chart for details) [] 50-year-old female presents with laceration to her head. Bleeding was controlled. Patient denied loss of consciousness. Patient's rating pain 2/10 denying needing anything for pain. Laceration was glued and 3 Steri-Strips were applied. Instructed patient to keep wound dry and clean. Take Tylenol or ibuprofen at home for headache. Patient states that she understands is appreciative and okay with discharge plan. (ASHLI MARTE APRN) Dragon Disclaimer: Dragon Disclaimer: This electronic medical record was generated, in whole or in part, using a voice recognition dictation system. (ASHLI MARTE APRN) Attending Co-Sign The patient was seen and interviewed as well as examined at the bedside. The chart was reviewed. The case was discussed. Agree with the plan of care. (BRITT DOWNEY DO) Departure Departure: Impression: Primary Impression: Laceration Disposition: HOME / SELF CARE / HOMELESS Condition: STABLE Referrals: CIERRA YO MD (PCP) Patient Instructions: Facial Laceration, [id number] Additional Instructions: EMERGENCY DEPARTMENT GENERAL DISCHARGE INSTRUCTIONS Thank you for coming to [facility] (ED) today and trusting us with you care. We trust that you had a positivie experience in our Emergency Department. If you wish to speak to the department management, you may call the director at [phone]. YOUR FOLLOW UP INSTRUCTIONS ARE FOLLOWS: 1. Do you have a private Doctor? If you do not have a private doctor, please ask for a resource list of physicians or clinics that may be able to assist you with follow up care. 2. The Emergency Physician has interpreted your x-rays. The X-Ray specialist will also review them. If there is a change in the findings, you will be notified in 48 hours when at all possible. 3. A lab test or culture has been done, your results will be reviewed and you will be notified if you need a change in treatment. ADDITIONAL INSTRUCTIONS AND INFORMATION: 1. Your care today has been supervised by a physician who is specially trained in emergency care. Many problems require more than one evaluation for a complete diagnosis and treatment. We recommend that you schedule your follow up appointment as recommended to ensure complete treatment of you illness or injury. If you are unable to obtain follow up care and continue to have a problem, or if your condition worsens, we recommend that you return to the ED. 2. We are not able to safely determine your condition over the phone nor are we able to give sound medical advice over the phone. For these safety reasons, if you call for medical advice we will ask you to come to the ED for further evaluation. 3. If you have any questions regarding these discharge instructions please call the ED at [phone]. SAFETY INFORMATION: In the interest of safety, wellness, and injury prevention; we encourage you to wear your sealbelt, if you smoke; quite smoking, and we encourage family to use a protective helmet for bicycling and other sporting events that present an increased risk for head injury. IF YOUR SYMPTOMS WORSEN OR NEW SYMPTOMS DEVELOP, OR YOU HAVE CONCERNS ABOUT YOUR CONDITION; OR IF YOUR CONDITION WORSENS WHILE YOU ARE WAITING FOR YOUR FOLLOW UP APPOINTMENT; EITHER CONTACT YOUR PRIMARY CARE DOCTOR, THE PHYSICIAN WHOSE NAME AND NUMBER YOU WERE GIVEN, OR RETURN TO THE ED IMMEDIATELY. ASHLI MARTE APRN July 07, 2020 17:53 BRITT DOWNEY DO July 08, 2020 06:19
== END 2020-07-07 18:00 | disposition home or self-care (01) ==
LOC: ER 17:03
DX: S01.81XA Laceration without foreign body of other part of head, initial encounter (principal); J44.9 Chronic obstructive pulmonary disease, unspecified; I10 Essential (primary) hypertension; Z90.49 Acquired absence of other specified parts of digestive tract; Z90.710 Acquired absence of both cervix and uterus; W22.8XXA Striking against or struck by other objects, initial encounter; Y93.89 Activity, other specified; Y92.89 Other specified places as the place of occurrence of the external cause; Y99.8 Other external cause status
CPT/HCPCS: 99282